=== PATIENT | male | born 1950 | race Caucasian/White ===

== ENCOUNTER 2017-02-20 20:28 | Emergency (ER) | payer SELFPAY ==
[2017-02-20 20:38] VITALS: BP 132/77; PULSE 74; TEMP 98.1
--- NOTE | 2017-02-20 22:37 | PDOC ---
History of Present Illness - General Chief Complaint: Hematuria Stated Complaint: URINE IN THE BLOOD Time Seen by Provider: 02/20/17 22:27 - History of Present Illness Initial Comments: 02/20/17 22:32 66 yo turkmen speaking male with h/o BPH who presents with hematuria. Pt. reports 4 days of gross blood when urinating. Also complains of 2 day duration of unremitting BL flank pain. Positive urinary hesitancy, but denies increased urinary frequency. Denies N/V, fevers/chills, C/D, dysuria, abdominal pain, back pain, chest pain, SOB, lightheadedness, dizziness, or vision changes. Denies NSAID use. Denies h/o trauma. Evaluated by Dr. Ge Orozco urologist 4 months ago. Told he has prostate inflammation. Denies h/o pyeloneprhitis or neprholithiasis. Past History - Past Medical History Allergies/Adverse Reactions: Allergies Allergy/AdvReac Type Severity Reaction Status Date / Time No Known Allergies Allergy Unverified 02/20/17 20:35 Home Medications: Ambulatory Orders Albuterol Sulfate Inhaler - [Ventolin HFA Inhaler -] 2 inh IH Q4H PRN #1 inh Amoxicillin - [Amoxicillin 500mg Capsule -] 500 mg PO TID 09/06/13 Oseltamivir Phosphate [Tamiflu -] 75 mg PO DAILY #10 capsule 09/06/13 Levofloxacin [Levaquin -] 500 mg PO DAILY #7 tablet 02/21/17 - Psycho/Social/Smoking Cessation Hx Suicidal Ideation: No Smoking History: Never smoked Review of Systems - Review of Systems Comments:: 02/20/17 22:42 GENERAL/CONSTITUTIONAL: No fever or chills. No weakness. HEAD, EYES, EARS, NOSE AND THROAT: No change in vision. No ear pain or discharge. No sore throat.- CARDIOVASCULAR: No chest pain or shortness of breath RESPIRATORY: No cough, wheezing, or hemoptysis. GASTROINTESTINAL: No nausea, vomiting, diarrhea or constipation. GENITOURINARY: + Hematuria. No dysuria, frequency, or change in urination. MUSCULOSKELETAL: No joint or muscle swelling or pain. No neck or back pain. SKIN: No rash NEUROLOGIC: No headache, vertigo, loss of consciousness, or change in strength/ sensation. ENDOCRINE: No increased thirst. No abnormal weight change HEMATOLOGIC/LYMPHATIC: No anemia, easy bleeding, or history of blood clots. ALLERGIC/IMMUNOLOGIC: No hives or skin allergy. *Physical Exam - Vital Signs Last Vital Signs Temp Pulse Resp BP Pulse Ox 98.1 F 74 18 132/77 97 02/20/17 20:35 02/20/17 20:35 02/20/17 20:35 02/20/17 20:35 02/20/17 20:35 - Physical Exam Comments: 02/20/17 22:48 GENERAL: Awake, alert, and fully oriented, in no acute distress HEAD: No signs of trauma, normocephalic, atraumatic EYES: PERRLA, EOMI, sclera anicteric, conjunctiva clear ENT: Auricles normal inspection, hearing grossly normal, nares patent, oropharynx clear without exudates. Moist mucosa NECK: Normal ROM, supple, no lymphadenopathy, JVD, or masses LUNGS: No distress, speaks full sentences, clear to auscultation bilaterally HEART: Regular rate and rhythm, normal S1 and S2, no murmurs, rubs or gallops, peripheral pulses normal and equal bilaterally. ABDOMEN: Absent CVA tednerness. Soft, nontender, normoactive bowel sounds. No guarding, no rebound. No masses EXTREMITIES: Normal inspection, Normal range of motion, no edema. No clubbing or cyanosis. SKIN: Warm, Dry, normal turgor, no rashes or lesions noted. ED Treatment Course - LABORATORY CBC & Chemistry Diagram: 02/20/17 23:47 02/20/17 23:47 Medical Decision Making - Medical Decision Making 02/20/17 23:45 66 yo Urdu speaking male with h/o BPH who presents with hematuria. Pt. with 4 days of gross blood with urination. Associated with BL flank pain. Denies fevers/chills, dysuria or other associated symptoms. Hemodynamically stable with benign physical exam. No h/o NSAID use. 4 months ago underwent intrsutmentation for prostate DDx: Nephrolithiasis, UTI, bladder ca. 02/20/17 23:48 ED Course: - CBC, CMP, UA, Culture - CT Abdomen/Pelvis 02/21/17 01:56 Levofloxacin 500 mg PO *DC/Admit/Observation/Transfer Diagnosis at time of Disposition: UTI (urinary tract infection), Hematuria - Prescriptions Prescriptions: Levofloxacin [Levaquin -] 500 mg PO DAILY #7 tablet - Referrals Referrals: Matty Tamez MD [Staff Physician] - Lusi Alberto Juarez MD [Primary Care Provider] - - Patient Instructions Printed Discharge Instructions: DI for Urinary Tract Infection (UTI)
--- NOTE | 2017-02-20 22:41 | PDOC ---
Attending Attestation - Resident Resident Name: Vitaliy Chavez - ED Attending Attestation I have performed the following: I have examined & evaluated the patient, The case was reviewed & discussed with the resident, I agree w/resident's findings & plan, Exceptions are as noted - HPI HPI: 02/20/17 22:49 blood in urine. H/o of BPH. Denies fever. - Physicial Exam PE: 02/20/17 22:51 *Physical Exam General Appearance: Yes: Appropriately Dressed. No: Apparent Distress, Intoxicated HEENT: positive: EOMI, THEA, Normal ENT Inspection, Normal Voice, TMs Normal, Pharynx Normal. negative: Pale Conjunctivae, Photophobia, Scleral Icterus (R), Scleral Icterus (L) Neck: positive: Trachea midline, Normal Thyroid, Supple. negative: Tender, Rigid, Carotid bruit, Stridor, Lymphadenopathy (R), Lymphadenopathy (L), Thyromegaly Respiratory/Chest: positive: Lungs Clear, Normal Breath Sounds. negative: Chest Tender, Respiratory Distress, Accessory Muscle Use, Labored Respiration, RES, Crackles, Rales, Rhonchi, Stridor, Wheezing, Dullness Cardiovascular: positive: Regular Rhythm, Regular Rate, S1, S2. negative: Edema , JVD, Murmur, Bradycardia, Tachycardia Vascular Pulses: Dorsalis-Pedis (R): 2+, Doralis-Pedis (L): 2+ Gastrointestinal/Abdominal: positive: Normal Bowel Sounds, Flat, Soft. negative : Tender, Organomegaly, Pulsatile Mass, Increased Bowel Sounds, Decreased BS, Distended, Guarding, Rebound, Hernia, Hepatomegaly, Spleenomegaly Lymphatic: negative: Adenopathy, Tenderness Musculoskeletal: positive: Normal Inspection. negative: CVA Tenderness, Decreased Range of Motion Extremity: positive: Normal Capillary Refill, Normal Inspection, Normal Range of Motion, Pelvis Stable. negative: Tender, Pedal Edema, Swelling, Erythema Integumentary: positive: Normal Color, Dry, Warm. negative: Cyanotic, Erythema , Jaundice, Rash Neurologic: positive: meter record clerk II-XII NML intact, Fully Oriented, Alert, Normal Mood/ Affect, Motor Strength 5/5. negative: EOM Palsy, Facial Droop, Sensory Deficit - Medical Decision Making 02/21/17 02:07 Pt found to have a uti. Rx Levaquin 500mg po. Pt discharged to follow up with urology Discharge Disposition - Diagnosis UTI (urinary tract infection) Qualifiers: Urinary tract infection type: acute cystitis Hematuria presence: with hematuria Qualified Code(s): N30.01 - Acute cystitis with hematuria Hematuria Qualifiers: Hematuria type: unspecified type Qualified Code(s): R31.9 - Hematuria, unspecified - Discharge Dispostion Disposition: HOME Condition at time of disposition: Good Admit: No - Referrals Referrals: Luis Alberto Juarez MD [Primary Care Provider] - Matty Tamez MD [Staff Physician] - - Patient Instructions Printed Discharge Instructions: DI for Urinary Tract Infection (UTI)
[2017-02-21 00:15] LABS: BASOPHIL 0.5 % (0-2.0); EOSINOPHIL 2.1 % (0-4.5); MCH 31.3 pg (25.7-33.7); MCHC 34.1 g/dl (32.0-35.9); MEAN CELL VOLUME 91.9 fl (80-96); MEAN PLT VOLUME 9.1 fl (7.5-11.1); NEUTROPHILS 54.2 % (42.8-82.8); PLATELET COUNT 151 K/MM3 (134-434); RDW 14.8 % (11.9-15.9); WHITE BLOOD COUNT 8.9 K/mm3 (4.0-10.0)
[2017-02-21 00:42] LABS: ALBUMIN 3.7 g/dl (3.4-5.0); ANION GAP 6 (8-16); BILIRUBIN,TOTAL 0.7 mg/dL (0.2-1.0); CALCIUM 8.6 mg/dL (8.5-10.1); CO2 30 mmol/L (21-32); CREATININE 1.2 mg/dL (0.7-1.3); GLUCOSE,RANDOM 91 mg/dL (74-106); SGOT/AST 21 U/L (15-37); SGPT/ALT 34 U/L (12-78); TOT PROT 6.8 g/dl (6.4-8.2)
[2017-02-21 00:43] LABS: ALK PHOS 76 U/L (45-117)
[2017-02-21 01:10] LABS: PH,URINE 5.5 (5.0-8.0); URINE BILIRUBIN 1+ (NEGATIVE); URINE BLOOD 3+ (NEGATIVE); URINE COLOR DK. RED; URINE GLUCOSE (UA) NEGATIVE (NEGATIVE); URINE KETONE TRACE (NEGATIVE)
[2017-02-21 01:14] LABS: URINE APPEARANCE TURBID; URINE LEUK ESTERASE TRACE (NEGATIVE); URINE NITRITE POSITIVE (NEGATIVE); URINE PROTEIN 3+ (NEGATIVE)
[2017-02-21 01:16] LABS: URINE RBC >100 /hpf (0-3)
[2017-02-21] MEDS ORDERED: LEVOFLOXACIN 500 MG TABLET (FP) PO ONE (01:37)
[2017-02-21] MEDS ORDERED: LEVOFLOXACIN 500 MG TABLET (FP) ONE (01:49)
== END 2017-02-21 02:15 | disposition home or self-care (01) ==
LOC: JER 20:28
DX: N39.0 Urinary tract infection, site not specified (principal); R31.9 Hematuria, unspecified; N40.0 Benign prostatic hyperplasia without lower urinary tract symptoms
CPT/HCPCS: 36415; 74176-TC; 80053; 81003; 81015; 85025; 87086; 99281-25

== ENCOUNTER 2017-08-05 07:42 | Day surgery (SDC) | payer MEDICARE, OTHER ==
[2017-08-02 11:35] VITALS: BMI 30.7
[2017-08-05 08:10] VITALS: TEMP 97.4
[2017-08-05] MEDS ORDERED: oxyCODONE HCL 5 MG TABLET PO PRN (11:43)
[2017-08-05] MEDS ORDERED: ONDANSETRON 4 MG/2 ML VIAL IVPUSH PRN (11:43)
[2017-08-05] MEDS ORDERED: LACTATED RINGERS SOLUTION 1,000 ML IV SCH (11:45)
--- NOTE | 2017-08-05 12:04 | OP ---
Operative Note - Note: Operative Date: 08/05/17 Pre-Operative Diagnosis: right renal stone Operation: right eswl Findings: 7 mm right mid-pole renal stone Post-Operative Diagnosis: Same as Pre-op Surgeon: Matty Tamez Anesthesia: Fractional
[2017-08-05 14:36] VITALS: BP 142/92; PULSE 60
--- NOTE | 2017-08-05 19:29 | OP ---
DATE OF OPERATION: 08/05/2017 PREOPERATIVE DIAGNOSIS: Right renal stone. POSTOPERATIVE DIAGNOSIS: Right renal stone. PROCEDURE: Right extracorporeal shock wave lithotripsy. ATTENDING SURGEON: Samreen Tamez M.D. ANESTHESIA: Fractional. OPERATION: Patient was brought in the operating room, placed in a supine position on the operating room table. Ultrasonography and fluoroscopy were performed. A 7-mm right mid pole stone was noted on fluoroscopy and ultrasonography. At this point, fractional anesthesia was administered. Patient was given 500 mg of Levaquin intravenously. The patient then had lithotripsy started. Extracorporeal shock wave lithotripsy was then performed, 2500 impulses at 20 joules of power was administered to the stone. No complications noted. There was excellent fragmentation of the stone noted under real time fluoroscopy and ultrasonography. DISPOSITION: Disposition of the patient to the recovery room. SAMREEN VALADEZ M.D. [id number]
== END 2017-08-05 13:30 | disposition home or self-care (01) ==
LOC: JASU-SURG 07:42
PROVIDERS: ATTEND Urology
PROC: 0TF3XZZ Fragmentation in Right Kidney Pelvis, External Approach (ICD-10-PCS; principal; 2017-08-05 09:30)
DX: N20.0 Calculus of kidney (principal)

== ENCOUNTER 2017-08-08 07:26 | Emergency (ER) | payer MEDICARE, OTHER ==
[2017-08-08 07:32] VITALS: TEMP 97.8; BMI 30.3
[2017-08-08] MEDS ORDERED: ACETAMINOPHEN 325 MG TABLET (FP) PO ONE ×2 (07:57→08:21)
[2017-08-08] MEDS ORDERED: ACETAMINOPHEN 325 MG TABLET (FP) ONE (08:02)
[2017-08-08] MEDS ORDERED: KETOROLAC TROMETHAMINE 60 MG/2 ML VIAL IM ONE (08:04)
[2017-08-08] MEDS ORDERED: SODIUM CHLORIDE 0.9% 1000 ML INFUS.BAG IV ONE (08:21)
[2017-08-08] MEDS ORDERED: KETOROLAC TROMETHAMINE 30 MG/1 ML VIAL IVPUSH ONE (08:21)
[2017-08-08 08:26] LABS: BASO % 0.5 % (0-2.0); EOS % 0.2 % (0-4.5); HEMATOCRIT 50.3 % (35.4-49); HEMOGLOBIN 16.7 GM/dL (11.7-16.9); LYMPH % 14.9 % (8-40); MCHC 33.2 g/dl (32.0-35.9); MEAN CELL VOLUME 90.4 fl (80-96); MEAN PLT VOLUME 9.1 fl (7.5-11.1); MONO % 7.2 % (3.8-10.2); NEUT % 77.2 % (42.8-82.8); PLATELET COUNT 152 K/MM3 (134-434); RBC 5.56 M/mm3 (4.00-5.60); RDW 14.9 % (11.9-15.9); WHITE BLOOD COUNT 13.7 K/mm3 (4.0-10.0)
[2017-08-08] MEDS ORDERED: KETOROLAC TROMETHAMINE 30 MG/1 ML VIAL ONE (08:31)
[2017-08-08 08:47] LABS: ALBUMIN 4.3 g/dl (3.4-5.0); ANION GAP 9 (8-16); BILIRUBIN,TOTAL 1.3 mg/dL (0.2-1.0); BLOOD UREA NITROGEN 14 mg/dL (7-18); CALCIUM 8.8 mg/dL (8.5-10.1); CHLORIDE 103 mmol/L (98-107); CO2 26 mmol/L (21-32); CREATININE 1.2 mg/dL (0.7-1.3); GLUCOSE,RANDOM 125 mg/dL (74-106); SGPT/ALT 32 U/L (12-78); SODIUM 138 mmol/L (136-145); TOT PROT 7.9 g/dl (6.4-8.2)
[2017-08-08 08:48] LABS: ALK PHOS 85 U/L (45-117)
[2017-08-08 08:49] LABS: POTASSIUM 4.1 mmol/L (3.5-5.1); SGOT/AST 17 U/L (15-37)
--- NOTE | 2017-08-08 09:06 | PDOC ---
Attending Attestation - Resident Resident Name: Danika Jenkinsony - ED Attending Attestation I have performed the following: I have examined & evaluated the patient, The case was reviewed & discussed with the resident, I agree w/resident's findings & plan, Exceptions are as noted - HPI HPI: 08/08/17 09:00 67-year-old male with history of asymptomatic nephrolithiasis now status post ESWL 3 days ago now presents with 2 days of progressive and constant right flank pain without dysuria/fever/chills, but did note tiny stones passing in the urine. Presents today secondary to persistent pain despite taking Tylenol at home. - Physicial Exam PE: 08/08/17 09:06 Vital signs stable, afebrile Uncomfortable appearing, standing by stretcher Positive right CVA tenderness, no abdominal tenderness or guarding No palpable hernias - Medical Decision Making 08/08/17 09:07 Patient seen and evaluated with the resident. I agree with the overall evaluation, assessment, and management with the following summary of visit: 67-year-old male with renal colic following ESWL 3 days ago, no fevers or evidence of infection. Check labs, urinalysis CT given persistence of symptoms for 2 days Pain control Reassess, discuss with Dr. Tamez.
[2017-08-08 09:17] LABS: URINE APPEARANCE CLEAR; URINE BILIRUBIN NEGATIVE (NEGATIVE); URINE BLOOD 3+ (NEGATIVE); URINE COLOR LTYELLOW; URINE GLUCOSE (UA) NEGATIVE (NEGATIVE); URINE KETONE TRACE (NEGATIVE); URINE LEUK ESTERASE NEGATIVE (NEGATIVE); URINE NITRITE NEGATIVE (NEGATIVE); URINE PROTEIN NEGATIVE (NEGATIVE); URINE UROBILINOGEN NEGATIVE mg/dL (0.2-1.0)
--- NOTE | 2017-08-08 09:23 | PDOC ---
History of Present Illness - General Chief Complaint: Pain, Acute Stated Complaint: PAIN Time Seen by Provider: 08/08/17 07:43 History Source: Patient Exam Limitations: No Limitations - History of Present Illness Initial Comments: 08/08/17 09:22 The patient is a 67M with a PMH of BPH and nephrolithiasis (s/p lithotripsy on w/ Dr. Tamez) who presents to the ER complaining of R flank pain. The patient states that this is the pain he experienced with his recent kidney stone. He states the pain is sharp and radiates to his back. He denies any hematuria, penile discharge, testicular swelling, numbness, tingling, and weakness. Past History - Past Medical History Allergies/Adverse Reactions: Allergies Allergy/AdvReac Type Severity Reaction Status Date / Time No Known Allergies Allergy Verified 08/08/17 07:28 Home Medications: Ambulatory Orders Tamsulosin HCl [Flomax -] 0.4 mg PO HS 08/02/17 Levofloxacin [Levaquin] 500 mg PO DAILY #5 tablet 08/08/17 Tramadol HCl [Ultram] 50 mg PO BID PRN #7 tablet MDD 2 08/08/17 Anemia: No Asthma: No Cancer: No Cardiac Disorders: No CVA: No COPD: No CHF: No Dementia: No Diabetes: No GI Disorders: No Disorders: Yes (kidney stones) HTN: No Hypercholesterolemia: No Seizures: No Thyroid Disease: No - Immunization History Immunization Up to Date: Yes - Suicide/Smoking/Psychosocial Hx Smoking History: Never smoked Have you smoked in the past 12 months: No Information on smoking cessation initiated: No Hx Alcohol Use: No Drug/Substance Use Hx: No Substance Use Type: None Hx Substance Use Treatment: No Review of Systems - Review of Systems Able to Perform ROS?: Yes Comments:: 08/08/17 09:28 GENERAL/CONSTITUTIONAL: No fever or chills. No weakness. HEAD, EYES, EARS, NOSE AND THROAT: No change in vision. No ear pain or discharge. No sore throat. CARDIOVASCULAR: No chest pain, palpitations, or lightheadedness. RESPIRATORY: No cough, wheezing, shortness of breath, or hemoptysis. GASTROINTESTINAL: No nausea, vomiting, diarrhea, constipation, or abdominal pain. GENITOURINARY: Positive for recent kidney stone. No dysuria, frequency, hematuria, or change in urination. MUSCULOSKELETAL: No joint or muscle swelling or pain. No neck or back pain. SKIN: No rash or lesions. NEUROLOGIC: No headache, numbness, tingling, weakness, loss of consciousness, or change in strength/sensation. ENDOCRINE: No increased thirst. No abnormal weight change. HEMATOLOGIC/LYMPHATIC: No anemia, easy bleeding, or history of blood clots. ALLERGIC/IMMUNOLOGIC: No hives or skin allergy. Is the patient limited Surinamese proficient: No *Physical Exam - Vital Signs Last Vital Signs Temp Pulse Resp BP Pulse Ox 97.8 F 74 17 149/92 96 08/08/17 07:29 08/08/17 07:29 08/08/17 07:29 08/08/17 07:29 08/08/17 07:29 - Physical Exam Comments: 08/08/17 09:28 GENERAL: Well developed, well nourished. Awake and alert. In moderate discomfort. HEENT: Normocephalic, atraumatic. Hearing grossly normal. Moist mucous membranes. PERRLA, EOMI. No conjunctival pallor. Sclera are non-icteric. NECK: Supple. Full ROM. No JVD. CARDIOVASCULAR: Regular rate and rhythm. No murmurs, rubs, or gallops. Distal pulses are 2+ and symmetric. PULMONARY: No evidence of respiratory distress. Lungs clear to auscultation bilaterally. No wheezing, rales or rhonchi. ABDOMINAL: Soft. Non-tender. Non-distended. No rebound or guarding. GENITOURINARY: R CVA tenderness. MUSCULOSKELETAL: Normal range of motion at all joints. No bony deformities or tenderness. EXTREMITIES: No cyanosis. No clubbing. No edema. No calf tenderness. SKIN: Warm and dry. Normal capillary refill. No rashes. No jaundice. NEUROLOGICAL: Alert, awake, appropriate. Cranial nerves 2-12 intact. Normal speech. Gait is normal without ataxia. PSYCHIATRIC: Cooperative. Good eye contact. Appropriate mood and affect. ED Treatment Course - LABORATORY CBC & Chemistry Diagram: 08/08/17 08:20 08/08/17 08:20 - ADDITIONAL ORDERS Additional order review: Laboratory Results 08/08/17 08:20 Sodium 138 Potassium 4.1 Chloride 103 Carbon Dioxide 26 Anion Gap 9 BUN 14 D Creatinine 1.2 Creat Clearance w eGFR > 60 Random Glucose 125 H D Calcium 8.8 Total Bilirubin 1.3 H D AST 17 ALT 32 Alkaline Phosphatase 85 Total Protein 7.9 Albumin 4.3 08/08/17 08:20 RBC 5.56 MCV 90.4 MCHC 33.2 RDW 14.9 MPV 9.1 Neutrophils % 77.2 D Lymphocytes % 14.9 D Monocytes % 7.2 Eosinophils % 0.2 D Basophils % 0.5 - Medications Given in the ED: ED Medications Discontinued Medications Generic Name Dose Route Start Last Admin Trade Name [place] PRN Reason Stop Dose Admin Acetaminophen 650 mg 08/08/17 07:57 08/08/17 08:34 Tylenol - PO 08/08/17 07:58 Not Given ONCE ONE Acetaminophen 650 mg 08/08/17 08:21 08/08/17 08:30 Tylenol - PO 08/08/17 08:22 650 mg ONCE ONE Administration Ketorolac Tromethamine 60 mg 08/08/17 08:04 08/08/17 08:34 Toradol Injection - IM 08/08/17 08:05 Not Given ONCE ONE Ketorolac Tromethamine 30 mg 08/08/17 08:21 08/08/17 08:34 Toradol Injection - IVPUSH 08/08/17 08:22 30 mg ONCE ONE Administration Sodium Chloride 1,000 ml 08/08/17 08:21 08/08/17 08:31 Normal Saline - IV 08/08/17 08:22 1,000 ml ONCE ONE Administration Medical Decision Making - Medical Decision Making 08/08/17 09:29 The patient is a 67M with a PMH of nephrolithiasis and BPH who presents with worsening flank pain likely 2/2 to his nephrolithiasis. Basic labs, UA, UCx sent. Will image to see location and size of remaining stones. 08/08/17 12:15 CTAP results: mild R hydroureteronephrosis with 3mm calculus. I have spoken to Dr. Tamez who recommends d/c the patient w/ pain control and abx and will f/u tomorrow in clinic. Pt states he feels much better and is ready for d/c. *DC/Admit/Observation/Transfer Diagnosis at time of Disposition: Kidney stone - Discharge Dispostion Disposition: HOME Condition at time of disposition: Good - Prescriptions Prescriptions: Levofloxacin [Levaquin] 500 mg PO DAILY #5 tablet Tramadol HCl [Ultram] 50 mg PO BID PRN #7 tablet MDD 2 PRN Reason: Pain - Referrals Referrals: Dago Hawthorne MD [Primary Care Provider] - - Patient Instructions Printed Discharge Instructions: Kidney Stones -- Adult Additional Instructions: Please return to the ER if symptoms persist, worsen, or new symptoms arise. Please follow up with Dr. Tamez tomorrow morning. Please return to the ER if you have any signs or symptoms of chest pain, shortness of breath, uncontrollable fever, chills, nausea, vomiting, numbness, tingling, or weakness in any part of your body, changes in vision, or slurred speech. Please take your medications as prescribed. Take motrin as needed for pain and use the Tramadol if the motrin does not control your pain. Por favor regrese a la roby de emergencias si los sntomas persisten, empeoran o surgen nuevos sntomas. Por favor, sigue con el Dr. Dashawn mosley por la maana. Por favor regrese a la roby de emergencia si tiene signos o sntomas de dolor en el pecho, dificultad para respirar, fiebre incontrolable, escalofros, n useas, vmitos, entumecimiento, hormigueo o debilidad en cualquier parte de aldridge cuerpo, cambios en la visin o dificultad para hablar. Por favor tome nancy medicamentos segn lo recetado. [place] motrin segn sea necesario para el dolor y use Tramadol si la motrin no controla aldridge dolor. - Post Discharge Activity
[2017-08-08 09:24] LABS: URINE MUCUS RARE
[2017-08-08 13:04] VITALS: BP 137/79; PULSE 78
== END 2017-08-08 13:04 | disposition home or self-care (01) ==
LOC: JER 07:26
PROC: 3E0333Z Introduction of Anti-inflammatory into Peripheral Vein, Percutaneous Approach (ICD-10-PCS; principal; 2017-08-08)
DX: N23 Unspecified renal colic (principal); Z87.442 Personal history of urinary calculi; N40.0 Benign prostatic hyperplasia without lower urinary tract symptoms
CPT/HCPCS: 36415; 74176-TC; 80053; 81003; 81015; 85025; 87086; 99283-25

== ENCOUNTER 2017-09-02 08:31 | Day surgery (SDC) | payer MEDICARE, OTHER ==
[2017-08-30 12:18] VITALS: BMI 30.7
--- NOTE | 2017-09-02 11:02 | OP ---
Operative Note - Note: Operative Date: 09/02/17 Pre-Operative Diagnosis: Left kidney stones Operation: Left ESWL Findings: 6mm left lower pole stones Surgeon: Matty Tamez Anesthesia: Fractional (no intraoperative complications)
[2017-09-02 13:06] VITALS: BP 145/88; PULSE 57; TEMP 97.8
--- NOTE | 2017-09-03 09:22 | OP ---
DATE OF OPERATION: 09/02/2017 PREOPERATIVE DIAGNOSIS: Left renal stone. POSTOPERATIVE DIAGNOSIS: Left renal stone. PROCEDURE: Left extracorporeal shock wave lithotripsy. ATTENDING: Samreen Valadez MD ANESTHESIA: General. DESCRIPTION OF OPERATION: The patient was brought in the operating room, placed in supine position on the operating room table. Ultrasonography and fluoroscopy were performed. A left lower pole stone measuring 6 mm was identified. Once anesthesia and preoperative antibiotics were administered, extracorporeal shock wave lithotripsy was started; 2500 impulses at 18 joules of power were administered to the stone. Excellent fragmentation of the stone was noted under real-time ultrasonography and fluoroscopy. The patient tolerated the procedure very well. No complications were noted. SAMREEN VALADEZ M.D. [id number]
== END 2017-09-02 13:06 | disposition home or self-care (01) ==
LOC: JASU-SURG 08:31
PROVIDERS: ATTEND Urology
PROC: 0TF4XZZ Fragmentation in Left Kidney Pelvis, External Approach (ICD-10-PCS; principal; 2017-09-02 10:15)
DX: N20.0 Calculus of kidney (principal)

== ENCOUNTER 2019-02-02 07:08 | Day surgery (SDC) | payer OTHER ==
[2019-01-30 14:59] VITALS: BMI 29.0
[2019-02-02] MEDS ORDERED: PROMETHAZINE HCL 25 MG/1 ML VIAL IVPB PRN (09:04)
[2019-02-02] MEDS ORDERED: oxyCODONE HCL 5 MG TABLET PO PRN (09:04)
[2019-02-02] MEDS ORDERED: ONDANSETRON 4 MG/2 ML VIAL IVPUSH PRN (09:04)
[2019-02-02] MEDS ORDERED: MIDAZOLAM HCL 2 MG/2 ML SINGLE DOSE VIAL ONE ×2 (09:08)
[2019-02-02] MEDS ORDERED: LACTATED RINGERS SOLUTION 1,000 ML IV SCH (09:15)
--- NOTE | 2019-02-02 10:32 | OP ---
Operative Note - Note: Operative Date: 02/02/19 Pre-Operative Diagnosis: Left renal stone Operation: Left ESWL Findings: 4 mm lower pole Left renal stoine Post-Operative Diagnosis: Same as Pre-op Anesthesia: Fractional Estimated Blood Loss (mls): 0 Operative Report Dictated: Yes
[2019-02-02 12:10] VITALS: BP 130/83; PULSE 61; TEMP 97.7
--- NOTE | 2019-02-02 19:50 | OP ---
DATE OF OPERATION: 02/02/2019 PREOPERATIVE DIAGNOSIS: Left renal stone. POSTOPERATIVE DIAGNOSIS: Left renal stone. PROCEDURE: Left extracorporeal shockwave lithotripsy. ATTENDING: Samreen Tamez M.D. ANESTHESIA: Fractional. DESCRIPTION OF PROCEDURE: Patient was brought in the operating room, placed in a supine position on the operating room table. Ultrasonography and fluoroscopy were performed. A 4-mm left lower pole stone was identified. At this point, anesthesia was administered as were preoperative antibiotics. Shockwave lithotripsy was then performed. Excellent fragmentation of the stone was noted under realtime sonography and fluoroscopy. No complications were noted. DISPOSITION: To recovery room. SAMREEN VALADEZ M.D. [id number]
== END 2019-02-02 12:20 | disposition home or self-care (01) ==
LOC: JASU-SURG 07:08
PROVIDERS: ATTEND Urology
PROC: 0TF4XZZ Fragmentation in Left Kidney Pelvis, External Approach (ICD-10-PCS; principal; 2019-02-02 08:45)
DX: N20.0 Calculus of kidney (principal)

== ENCOUNTER 2021-04-13 16:20 | Emergency (ER) | payer OTHER ==
[2021-04-13 16:43] VITALS: BP 130/79; PULSE 68; TEMP 97.9; BMI 30.7
[2021-04-13] MEDS ORDERED: SODIUM CHLORIDE 0.9% 500 ML INFUS.BAG IV ONE (17:12)
[2021-04-13 19:40] LABS: BASO % 0.9 % (0-2.0); EOS % 1.7 % (0-4.5); HEMOGLOBIN 17.1 GM/dL (11.7-16.9); LYMPH % 32.1 % (8-40); MCH 30.8 pg (25.7-33.7); MCHC 34.2 g/dl (32.0-35.9); MEAN CELL VOLUME 90.1 fl (80-96); MEAN PLT VOLUME 8.9 fl (7.5-11.1); MONO % 8.7 % (3.8-10.2); NEUT % 56.6 % (42.8-82.8); PLATELET COUNT 157 10^3/uL (134-434); RBC 5.55 M/mm3 (4.00-5.60); RDW 15.1 % (11.9-15.9); WHITE BLOOD COUNT 8.4 K/mm3 (4.0-10.0)
[2021-04-13 19:44] LABS: EPI CELLS 3 /uL (0-25.1); HYALINE CASTS 0 /uL (0-3.1); URINE APPEARANCE CLOUDY; URINE BACTERIA 0 /uL (0-1359); URINE BILIRUBIN 1+ (NEGATIVE); URINE COLOR RED; URINE GLUCOSE (UA) NEGATIVE (NEGATIVE); URINE KETONE NEGATIVE (NEGATIVE); URINE LEUK ESTERASE 1+ (NEGATIVE); URINE NITRITE NEGATIVE (NEGATIVE); URINE PROTEIN 2+ (NEGATIVE); URINE RBC 38824 /uL (0-23.9); URINE UROBILINOGEN 0.2 mg/dL (0.2-1.0); URINE WBC 52 /uL (0-25.8)
[2021-04-13 19:47] LABS: INR 1.03 (0.83-1.09); PROTHROMBIN TIME (PATIENT) 11.5 SEC (9.7-13.0)
[2021-04-13 19:56] LABS: CHLORIDE 106 mmol/L (98-107); SODIUM 136 mmol/L (136-145)
[2021-04-13 19:58] LABS: ALBUMIN 3.4 g/dl (3.4-5.0); BLOOD UREA NITROGEN 17.3 mg/dL (7-18); CALCIUM 9.1 mg/dL (8.5-10.1); CO2 24 mmol/L (21-32)
[2021-04-13 19:59] LABS: GLUCOSE,RANDOM 93 mg/dL (74-106)
[2021-04-13 20:02] LABS: CREATININE 1.1 mg/dL (0.55-1.3)
[2021-04-13 20:03] LABS: BILIRUBIN,TOTAL 0.4 mg/dL (0.2-1); TOT PROT 8.4 g/dl (6.4-8.2)
[2021-04-13 20:04] LABS: ALK PHOS 81 U/L (45-117)
[2021-04-13 20:06] LABS: ANION GAP 6 MMOL/L (8-16); SGOT/AST 76 U/L (15-37); SGPT/ALT 44 U/L (13-61)
[2021-04-13 21:43] LABS: BLOOD UREA NITROGEN 15.8 mg/dL (7-18)
== END 2021-04-13 22:58 | disposition home or self-care (01) ==
LOC: JER 16:20
DX: R31.9 Hematuria, unspecified (principal)
CPT/HCPCS: 36415; 76775-TC; 76856-TC; 80048; 80053; 81003; 85025; 85610; 87086; 99284-25

== ENCOUNTER 2021-04-21 18:56 | Inpatient (IN) | payer OTHER ==
[2021-04-21 19:27] VITALS: BMI 29.0
[2021-04-21 21:37] LABS: EPI CELLS 2 /uL (0-25.1); HYALINE CASTS 7 /uL (0-3.1); PH,URINE 5.5 (5.0-8.0); URINE APPEARANCE CLOUDY; URINE BACTERIA >9,000 /uL (0-1359); URINE BILIRUBIN NEGATIVE (NEGATIVE); URINE COLOR YELLOW; URINE GLUCOSE (UA) NEGATIVE (NEGATIVE); URINE KETONE TRACE (NEGATIVE); URINE LEUK ESTERASE 2+ (NEGATIVE); URINE NITRITE POSITIVE (NEGATIVE); URINE PROTEIN 1+ (NEGATIVE); URINE RBC 7544 /uL (0-23.9); URINE WBC 611 /uL (0-25.8)
[2021-04-21] MEDS ORDERED: CEFTRIAXONE 1 GM in DEXTROSE 5%-WATER - 100 ML IVPB ONE (22:07)
[2021-04-21] MEDS ORDERED: CEFTRIAXONE 1 GM/50 ML BAG ONE (22:36)
[2021-04-21 23:20] LABS: BASO % 0.4 % (0-2.0); EOS % 0.2 % (0-4.5); HEMATOCRIT 43.4 % (35.4-49); HEMOGLOBIN 15.2 GM/dL (11.7-16.9); LYMPH % 13.6 % (8-40); MCH 30.7 pg (25.7-33.7); MEAN CELL VOLUME 87.7 fl (80-96); MEAN PLT VOLUME 8.3 fl (7.5-11.1); MONO % 7.6 % (3.8-10.2); NEUT % 78.2 % (42.8-82.8); PLATELET COUNT 169 10^3/uL (134-434); RBC 4.95 M/mm3 (4.00-5.60); RDW 13.8 % (11.9-15.9); WHITE BLOOD COUNT 15.4 K/mm3 (4.0-10.0)
[2021-04-21 23:40] LABS: CALCIUM 8.6 mg/dL (8.5-10.1)
[2021-04-21 23:41] LABS: ALBUMIN 3.3 g/dl (3.4-5.0); BLOOD UREA NITROGEN 18.4 mg/dL (7-18)
[2021-04-21 23:44] LABS: CREATININE 1.3 mg/dL (0.55-1.3)
[2021-04-21 23:45] LABS: BILIRUBIN,TOTAL 0.8 mg/dL (0.2-1)
[2021-04-21 23:46] LABS: TOT PROT 6.9 g/dl (6.4-8.2)
[2021-04-22] MEDS: ACETAMINOPHEN 325 MG TABLET (FP) PO PRN ×3 (05:51→18:13)
[2021-04-22] MEDS: amLODIPine BESYLATE 5 MG TABLET (FP) PO SCH (09:53)
[2021-04-22] MEDS: ENOXAPARIN NA (PORCINE) 40 MG/0.4 ML DISP.SYRIN SQ SCH (09:53)
[2021-04-22] MEDS: TAMSULOSIN HCL 0.4 MG CAP PO SCH (09:53)
[2021-04-22] MEDS: POLYETHYLENE GLYCOL (HEALTHYLAX) 3350 17 GM PACKET PO SCH ×2 (13:49→21:38)
[2021-04-22] MEDS ORDERED: cefTRIAXone SODIUM 1 GM VIAL ONE (21:07)
[2021-04-22] MEDS ORDERED: DEXTROSE 5%-WATER - 50 ML IVPB ONE (21:07)
[2021-04-22] MEDS: ROSUVASTATIN CA 10 MG TABLET (FP) PO SCH (21:38)
[2021-04-22] MEDS: CEFTRIAXONE 1 GM in DEXTROSE 5%-WATER - 50 ML IVPB SCH (21:38)
[2021-04-23] MEDS ORDERED: cefTRIAXone SODIUM 1 GM VIAL ONE (09:57)
[2021-04-23] MEDS ORDERED: DEXTROSE 5%-WATER - 50 ML IVPB ONE (09:57)
[2021-04-23] MEDS: TAMSULOSIN HCL 0.4 MG CAP PO SCH (09:59)
[2021-04-23] MEDS: ENOXAPARIN NA (PORCINE) 40 MG/0.4 ML DISP.SYRIN SQ SCH (09:59)
[2021-04-23] MEDS: amLODIPine BESYLATE 5 MG TABLET (FP) PO SCH (09:59)
[2021-04-23] MEDS: POLYETHYLENE GLYCOL (HEALTHYLAX) 3350 17 GM PACKET PO SCH ×2 (09:59→21:23)
[2021-04-23] MEDS: CEFTRIAXONE 1 GM in DEXTROSE 5%-WATER - 50 ML IVPB SCH (09:59)
[2021-04-23 10:09] LABS: BASO % 0.3 % (0-2.0); EOS % 0.2 % (0-4.5); HEMATOCRIT 44.9 % (35.4-49); HEMOGLOBIN 15.5 GM/dL (11.7-16.9); LYMPH % 9.3 % (8-40); MCH 31.3 pg (25.7-33.7); MCHC 34.5 g/dl (32.0-35.9); MEAN CELL VOLUME 90.6 fl (80-96); MEAN PLT VOLUME 9.3 fl (7.5-11.1); MONO % 6.3 % (3.8-10.2); NEUT % 83.9 % (42.8-82.8); PLATELET COUNT 169 10^3/uL (134-434); RBC 4.95 M/mm3 (4.00-5.60); RDW 14.5 % (11.9-15.9); WHITE BLOOD COUNT 17.8 K/mm3 (4.0-10.0)
[2021-04-23 10:13] LABS: INR 1.27 (0.83-1.09); PROTHROMBIN TIME (PATIENT) 14.3 SEC (9.7-13.0)
[2021-04-23 10:16] LABS: ACTIVATED PTT 26.9 SECONDS (25.2-36.5)
[2021-04-23 10:30] LABS: CALCIUM 8.7 mg/dL (8.5-10.1)
[2021-04-23 10:31] LABS: BLOOD UREA NITROGEN 12.8 mg/dL (7-18)
[2021-04-23 10:34] LABS: CREATININE 1.2 mg/dL (0.55-1.3)
[2021-04-23] MEDS: ROSUVASTATIN CA 10 MG TABLET (FP) PO SCH (21:23)
[2021-04-23] MEDS: ZOLPIDEM TARTRATE 5 MG TABLET PO PRN (21:25)
[2021-04-24] MEDS ORDERED: DEXTROSE 5%-WATER - 50 ML IVPB ONE (08:57)
[2021-04-24] MEDS ORDERED: cefTRIAXone SODIUM 1 GM VIAL ONE (08:57)
[2021-04-24] MEDS: ENOXAPARIN NA (PORCINE) 40 MG/0.4 ML DISP.SYRIN SQ SCH (09:01)
[2021-04-24] MEDS: TAMSULOSIN HCL 0.4 MG CAP PO SCH ×2 (09:02→10:19)
[2021-04-24] MEDS: CEFTRIAXONE 1 GM in DEXTROSE 5%-WATER - 50 ML IVPB SCH (09:02)
[2021-04-24] MEDS: amLODIPine BESYLATE 5 MG TABLET (FP) PO SCH (09:02)
[2021-04-24] MEDS: POLYETHYLENE GLYCOL (HEALTHYLAX) 3350 17 GM PACKET PO SCH ×2 (09:02→21:25)
[2021-04-24 10:28] LABS: BASO % 0.2 % (0-2.0); EOS % 1.1 % (0-4.5); HEMATOCRIT 47.8 % (35.4-49); HEMOGLOBIN 16.4 GM/dL (11.7-16.9); LYMPH % 16.6 % (8-40); MCH 31.2 pg (25.7-33.7); MCHC 34.3 g/dl (32.0-35.9); MEAN PLT VOLUME 9.7 fl (7.5-11.1); MONO % 10.8 % (3.8-10.2); NEUT % 71.3 % (42.8-82.8); PLATELET COUNT 210 10^3/uL (134-434); RBC 5.25 M/mm3 (4.00-5.60); RDW 14.5 % (11.9-15.9); WHITE BLOOD COUNT 15.9 K/mm3 (4.0-10.0)
[2021-04-24 11:01] LABS: CALCIUM 9.4 mg/dL (8.5-10.1)
[2021-04-24 11:02] LABS: CREATININE 1.3 mg/dL (0.55-1.3)
[2021-04-24 11:04] LABS: TOT PROT 7.6 g/dl (6.4-8.2)
[2021-04-24 12:01] LABS: MAGNESIUM 2.3 mg/dL (1.8-2.4)
[2021-04-24] MEDS: ROSUVASTATIN CA 10 MG TABLET (FP) PO SCH (21:25)
[2021-04-24] MEDS: ZOLPIDEM TARTRATE 5 MG TABLET PO PRN (21:29)
[2021-04-25 08:30] LABS: BASO % 0.6 % (0-2.0); EOS % 2.3 % (0-4.5); HEMATOCRIT 44.5 % (35.4-49); HEMOGLOBIN 15.3 GM/dL (11.7-16.9); LYMPH % 17.8 % (8-40); MCH 30.9 pg (25.7-33.7); MCHC 34.3 g/dl (32.0-35.9); MEAN CELL VOLUME 90.1 fl (80-96); MEAN PLT VOLUME 8.5 fl (7.5-11.1); MONO % 12.9 % (3.8-10.2); NEUT % 66.4 % (42.8-82.8); PLATELET COUNT 188 10^3/uL (134-434); RBC 4.94 M/mm3 (4.00-5.60); RDW 14.3 % (11.9-15.9); WHITE BLOOD COUNT 9.1 K/mm3 (4.0-10.0)
[2021-04-25] MEDS: TAMSULOSIN HCL 0.4 MG CAP PO SCH (08:30)
[2021-04-25 08:52] LABS: CALCIUM 8.7 mg/dL (8.5-10.1)
[2021-04-25 08:53] LABS: BLOOD UREA NITROGEN 14.9 mg/dL (7-18)
[2021-04-25 08:56] LABS: CREATININE 1.1 mg/dL (0.55-1.3)
[2021-04-25] MEDS ORDERED: DEXTROSE 5%-WATER 100 ML IVPB ONE (09:18)
[2021-04-25] MEDS: POLYETHYLENE GLYCOL (HEALTHYLAX) 3350 17 GM PACKET PO SCH (09:28)
[2021-04-25] MEDS: amLODIPine BESYLATE 5 MG TABLET (FP) PO SCH (09:29)
[2021-04-25] MEDS: ENOXAPARIN NA (PORCINE) 40 MG/0.4 ML DISP.SYRIN SQ SCH (09:29)
[2021-04-25] MEDS ORDERED: CEFTRIAXONE 2 GM in DEXTROSE 5%-WATER 2 GM/100 ML BAG IVPB SCH (10:00)
[2021-04-25 14:32] VITALS: BP 118/71; PULSE 79; TEMP 97.9
== END 2021-04-25 18:18 | disposition home or self-care (01) | DRG 690 ==
LOC: JER 18:56 → JERBED 23:55 → J6S 04-22 04:45
PROVIDERS: ATTEND Family Medicine
DX: N30.01 Acute cystitis with hematuria (principal); J98.11 Atelectasis; N40.0 Benign prostatic hyperplasia without lower urinary tract symptoms; E78.5 Hyperlipidemia, unspecified; D72.829 Elevated white blood cell count, unspecified; I12.9 Hypertensive chronic kidney disease with stage 1 through stage 4 chronic kidney disease, or unspecified chronic kidney disease; N18.30 Chronic kidney disease, stage 3 unspecified; R09.02 Hypoxemia; B96.1 Klebsiella pneumoniae [K. pneumoniae] as the cause of diseases classified elsewhere; K59.00 Constipation, unspecified; Z87.442 Personal history of urinary calculi
CPT/HCPCS: 36415; 71045-TC-FY; 80048; 80053; 81003; 83735; 85025; 85610; 85730; 87086; 87186; 93005; 93010; 99285-25; C9803; U0003; U0005